=== PATIENT | female | born 1995 | race Native Hawaiian/Other Pacific Islander ===

== ENCOUNTER 2021-05-08 22:20 | Emergency (ER) | payer OTHER ==
[~2021-05-08] VITALS: Ht 162.6 cm; Wt 93.9 kg
[2021-05-08 23:54] LABS: PLATELET COUNT 254 K/uL (152-353)
[2021-05-09 00:03] LABS: POTASSIUM 3.9 mmol/L (3.6-5.2)
[2021-05-09 01:00] VITALS: BP 139/81; TEMP 98.9
== END 2021-05-09 01:00 | disposition home or self-care (01) ==
LOC: ED 22:20
PROVIDERS: Emergency Medicine
DX: J01.80 Other acute sinusitis (principal)
CPT/HCPCS: 36415; 80053; 85027; 96372; 99283; J1885

== ENCOUNTER 2021-11-19 16:20 | Emergency (ER) | payer OTHER ==
[~2021-11-19] VITALS: Ht 162.6 cm; Wt 91.2 kg
[2021-11-19 17:36] LABS: PLATELET COUNT 183 K/uL (152-353)
[2021-11-19 17:42] LABS: POTASSIUM 3.5 mmol/L (3.6-5.2)
[2021-11-19] MEDS ORDERED: MEDROL DOSEPAK4 MG PO (19:24)
[2021-11-19] MEDS ORDERED: IBU600 MG PO (19:26)
[2021-11-19 19:41] VITALS: BP 119/67; TEMP 98.3
== END 2021-11-19 19:41 | disposition home or self-care (01) ==
LOC: ED 16:20
PROVIDERS: Family Medicine
DX: S39.012A Strain of muscle, fascia and tendon of lower back, initial encounter (principal); M54.16 Radiculopathy, lumbar region; X58.XXXA Exposure to other specified factors, initial encounter; Y93.H9 Activity, other involving exterior property and land maintenance, building and construction; Y92.89 Other specified places as the place of occurrence of the external cause
CPT/HCPCS: 80053; 80307; 81002; 82550; 85027; 96374; 99284; J1885